=== PATIENT | male | born 1965 | race Hispanic/Latino ===

== ENCOUNTER → 2023-06-12 | Outpatient (CLI) | payer MEDICARE | END | disposition home or self-care (01) | LOC: SHCH 09:34 | PROVIDERS: ATTEND Internal Medicine Cardiovascular Disease | DX: I70.203 Unspecified atherosclerosis of native arteries of extremities, bilateral legs (principal); I65.23 Occlusion and stenosis of bilateral carotid arteries; I67.9 Cerebrovascular disease, unspecified; R09.89 Other specified symptoms and signs involving the circulatory and respiratory systems | CPT/HCPCS: 93880; 93925; 93970 ==

== ENCOUNTER → 2023-06-17 | Outpatient (CLI) | payer MEDICARE ==
[~2023-06-17] MED LIST: REGADENOSON 0.4 MG/5 ML PF SYG IVP ONE
== END | disposition home or self-care (01) ==
LOC: SHCH 08:21
PROVIDERS: ATTEND Internal Medicine Cardiovascular Disease
DX: I25.119 Atherosclerotic heart disease of native coronary artery with unspecified angina pectoris (principal)
CPT/HCPCS: 78452; 96374; 93017; J2785; A9500 ×2

== ENCOUNTER → 2023-07-23 | Outpatient (CLI) | payer MEDICARE ==
[2023-07-23 12:34] LABS: CREATININE 1.2 mg/dL (0.5-1.5)
== END | disposition home or self-care (01) ==
LOC: LAB 08:22
PROVIDERS: ATTEND Internal Medicine Cardiovascular Disease
DX: I25.119 Atherosclerotic heart disease of native coronary artery with unspecified angina pectoris (principal); I10 Essential (primary) hypertension
CPT/HCPCS: 36415; 82565; 84520

== ENCOUNTER 2023-08-12 08:37 | Day surgery (SDC) | payer MEDICARE ==
[2023-08-09 09:08] LABS: BASOPHILS # (AUTO) 0.05 K/uL (0.00-0.20); BASOPHILS % (AUTO) 0.5 % (0.0-5.0); EOSINOPHILS # (AUTO) 0.23 K/uL (0.00-0.70); EOSINOPHILS % (AUTO) 2.2 % (0.0-8.0); HEMATOCRIT 50.5 % (42-54); IMMATURE GRANULOCYTE ABSOLUTE 0.04 K/uL (0-1); LYMPHOCYTES # (AUTO) 2.4 K/uL (1.0-4.8); LYMPHOCYTES % (AUTO) 22.9 % (21.0-51.0); MEAN CORPUSCULAR HEMOGLOBIN 28.9 pg (27.0-33.0); MEAN CORPUSCULAR HGB CONC 31.7 g/dL (32.0-36.0); MEAN CORPUSCULAR VOLUME 91.3 fL (79-99); MONOCYTES # (AUTO) 0.9 K/uL (0.1-1.0); MONOCYTES % (AUTO) 8.6 % (3.0-13.0); NEUTROPHILS % (AUTO) 65.4 % (40.0-77.0); PLATELET COUNT (AUTO) 179 K/uL (130-400); RED BLOOD CELL COUNT(AUTO) 5.53 MIL/uL (4.50-6.20); RED CELL DISTRIBUTION WIDTH 15.3 % (11.0-15.5); WHITE BLOOD COUNT (AUTO) 10.7 K/uL (4.8-10.8)
[2023-08-09 09:19] LABS: POTASSIUM 4.5 mmol/L (3.5-5.1)
[2023-08-09 09:22] LABS: INR < 0.93 (0.85-1.15); PROTHROMBIN TIME 10.7 SEC (9.6-11.6)
[2023-08-09 09:23] LABS: PARTIAL THROMBOPLASTIN TIME 31.9 SEC (26.3-35.5)
[2023-08-09 09:35] LABS: B-TYPE NATRIURETIC PEPTIDE < 5 pg/mL (0-100)
[2023-08-09 09:43] VITALS: BP 165/90; PULSE 90; RESP 18
[2023-08-09 10:17] LABS: APPEARANCE,URINE CLEAR (CLEAR); BILIRUBIN,URINE NEGATIVE (NEGATIVE); COLOR,URINE LIGHT-YELLOW (YELLOW); GLUCOSE, URINE (UA) NEGATIVE (NEGATIVE); KETONES,URINE NEGATIVE (NEGATIVE); LEUKOCYTE ESTERASE ,URINE NEGATIVE Leu/uL (NEGATIVE); NITRATE,URINE NEGATIVE (NEGATIVE); OCCULT BLOOD,URINE NEGATIVE (NEGATIVE); PROTEIN,URINE 70 mg/dL (NEGATIVE); UROBILINOGEN,URINE 0.2 mg/dL (0.2-1.0)
[2023-08-09 10:40] LABS: ADD UA MICROSCOPIC YES
[2023-08-09 10:51] LABS: MUCUS,URINE RARE LPF (None Seen); RBC,URINE 0-1 /HPF (0-1); SQUAMOUS EPITHELIAL CELL,UR RARE /HPF (0-2); WBC,URINE 0-1 /HPF (0-1)
[~2023-08-12] VITALS: Ht 172.7 cm; Wt 95.9 kg
[~2023-08-12 08:37] MED LIST changes: +ALPR2TAB7 PO; +ATOR40TA71 PO; +DILT240C81 PO; +ERGO500093 PO; +GABA-529 PO; +HYDR-4068 PO; +ISOS30TA11 PO; +LEVA15HF3 IH; +LOSA100T59 PO; +METF-444 PO; +METO100T14 PO; +MONT-39 PO; +PRED10TA3 PO; +PROM473S7 PO; +RANO500T2 PO; -REGADENOSON 0.4 MG/5 ML PF SYG IVP ONE; +SERT-440 PO; +TAMS-1 PO; +THEO400T3 PO
[2023-08-12 09:00] VITALS: BP 162/71; PULSE 116; RESP 20
[2023-08-12] MEDS ORDERED: 0.9%NACL 1000ML 1,000 ML IV ONE ×2 (09:05→09:44)
[2023-08-12] MEDS ORDERED: NICARDIPINE 25MG INJ IV ONE (10:09)
[2023-08-12] MEDS ORDERED: IOHEXOL-350 50ML VIAL IV ONE (10:09)
[2023-08-12] MEDS ORDERED: IOHEXOL 350 MG/ML 100ML INFUS..BTL IV ONE (10:09)
[2023-08-12] MEDS ORDERED: LIDOCAINE HCL 400MG/20ML VIAL ONE (10:09)
[2023-08-12] MEDS ORDERED: SODIUM BICARB 50MEQ 50ML VIAL 0 ML ONE (10:10)
== END 2023-08-12 10:30 | disposition home or self-care (01) ==
LOC: DAH 08:37
PROVIDERS: ATTEND Internal Medicine Cardiovascular Disease
DX: I25.10 Atherosclerotic heart disease of native coronary artery without angina pectoris (principal); G47.33 Obstructive sleep apnea (adult) (pediatric); F41.0 Panic disorder [episodic paroxysmal anxiety]; F43.10 Post-traumatic stress disorder, unspecified; Z53.8 Procedure and treatment not carried out for other reasons; Z79.01 Long term (current) use of anticoagulants
CPT/HCPCS: 71045; 80048; 83880; 85025; 85610; 85730; 81001; 36415; 93005; 82948; J7030 ×2; A4215; A4222; A4221; A4663; A4216; A4606; A4223 ×3; J1644; J3490; Q9967

== ENCOUNTER 2023-09-20 05:39 | Observation (INO) | payer MEDICARE ==
[2023-09-17 10:48] LABS: BASOPHILS # (AUTO) 0.05 K/uL (0.00-0.20); BASOPHILS % (AUTO) 0.4 % (0.0-5.0); EOSINOPHILS % (AUTO) 1.7 % (0.0-8.0); HEMATOCRIT 47.6 % (42-54); IMMATURE GRANULOCYTE ABSOLUTE 0.07 K/uL (0-1); LYMPHOCYTES # (AUTO) 2.7 K/uL (1.0-4.8); LYMPHOCYTES % (AUTO) 22.8 % (21.0-51.0); MEAN CORPUSCULAR HEMOGLOBIN 29.1 pg (27.0-33.0); MEAN CORPUSCULAR HGB CONC 32.1 g/dL (32.0-36.0); MEAN CORPUSCULAR VOLUME 90.7 fL (79-99); MONOCYTES # (AUTO) 1.1 K/uL (0.1-1.0); MONOCYTES % (AUTO) 9.3 % (3.0-13.0); NEUTROPHILS # (AUTO) 7.6 K/uL (1.8-7.7); NEUTROPHILS % (AUTO) 65.2 % (40.0-77.0); PLATELET COUNT (AUTO) 185 K/uL (130-400); RED BLOOD CELL COUNT(AUTO) 5.25 MIL/uL (4.50-6.20); RED CELL DISTRIBUTION WIDTH 14.6 % (11.0-15.5); WHITE BLOOD COUNT (AUTO) 11.7 K/uL (4.8-10.8)
[2023-09-17 10:50] LABS: APPEARANCE,URINE CLEAR (CLEAR); BILIRUBIN,URINE NEGATIVE (NEGATIVE); COLOR,URINE LIGHT-YELLOW (YELLOW); GLUCOSE, URINE (UA) NEGATIVE (NEGATIVE); KETONES,URINE NEGATIVE (NEGATIVE); LEUKOCYTE ESTERASE ,URINE NEGATIVE Leu/uL (NEGATIVE); NITRATE,URINE NEGATIVE (NEGATIVE); OCCULT BLOOD,URINE NEGATIVE (NEGATIVE); PH,URINE 6.5 (5.0-8.0); PROTEIN,URINE 20 mg/dL (NEGATIVE); UROBILINOGEN,URINE 0.2 mg/dL (0.2-1.0)
[2023-09-17 10:54] LABS: ADD UA MICROSCOPIC YES
[2023-09-17 11:00] LABS: INR 0.94 (0.85-1.15); PROTHROMBIN TIME 10.9 SEC (9.6-11.6)
[2023-09-17 11:01] LABS: PARTIAL THROMBOPLASTIN TIME 31.7 SEC (26.3-35.5)
[2023-09-17 11:01] LABS: MUCUS,URINE RARE LPF (None Seen); RBC,URINE 0-1 /HPF (0-1); WBC,URINE 0-1 /HPF (0-1)
[2023-09-17 11:13] LABS: B-TYPE NATRIURETIC PEPTIDE 6 pg/mL (0-100)
[2023-09-17 11:15] LABS: POTASSIUM 3.9 mmol/L (3.5-5.1)
[2023-09-17 11:19] VITALS: BP 190/80; PULSE 105; RESP 21
[~2023-09-20] VITALS: Ht 170.2 cm; Wt 94.1 kg
[2023-09-20] VITALS (34 sets, daily range): BP systolic 125–198; BP diastolic 70–110; PULSE 70–102; RESP 14–24; O2SAT 95–98
[~2023-09-20 05:39] MED LIST changes: -ALPR2TAB7 PO; -ERGO500093 PO; -HYDR-4068 PO; -LEVA15HF3 IH; +LEVAHFA IH; +albuterol IH
[2023-09-20] MEDS ORDERED: 0.9%NACL 1000ML 1,000 ML IV ONE (06:58)
[2023-09-20] MEDS ORDERED: SODIUM BICARB 50MEQ 50ML VIAL 50 ML ONE (07:08)
[2023-09-20] MEDS ORDERED: LIDOCAINE HCL 400MG/20ML VIAL ONE (07:08)
[2023-09-20] MEDS ORDERED: HEPARIN 10,000 UNIT/10ML (1,000 UNIT/ML) VIAL ONE (07:09)
[2023-09-20] MEDS ORDERED: IOHEXOL 350 MG/ML 100ML INFUS..BTL IV ONE ×2 (07:09→12:12)
[2023-09-20] MEDS ORDERED: NITROGLYCERIN 50MG VIAL ONE (07:09)
[2023-09-20] MEDS ORDERED: FENTANYL CITRATE PF 50 MCG/1 ML 2ML VIAL ONE (07:27)
[2023-09-20] MEDS ORDERED: ROCURONIUM 10MG/1ML SYR 10 MG/ML ML ONE (07:27)
[2023-09-20] MEDS ORDERED: SUCCINYLCHOLINE 200MG/10ML SYR ONE (07:27)
[2023-09-20] MEDS ORDERED: PROPOFOL 10 MG/ML 20ML VIAL IV ONE ×2 (07:27→08:33)
[2023-09-20] MEDS ORDERED: PHENYLEPHRINE HCL 10 MG/ML 1ML VIAL IV ONE (07:27)
[2023-09-20] MEDS ORDERED: LIDOCAINE PF 100MG/5ML (2%) SYRINGE 5ML ONE (07:27)
[2023-09-20] MEDS ORDERED: NICARDIPINE 25MG INJ IV ONE (07:28)
[2023-09-20] MEDS ORDERED: SUGAMMADEX SODIUM 200 MG/2 ML VIAL IV ONE (07:31)
[2023-09-20] MEDS ORDERED: ACETAMINOPHEN WITH CODEINE 1 TAB TAB PO PRN ×2 (09:30)
[2023-09-20] MEDS ORDERED: ONDANSETRON 4MG INJ IVP PRN ×2 (09:30→12:00)
[2023-09-20] MEDS ORDERED: CLOPIDOGREL 300MG TAB PO SCH ×2 (09:30→10:30)
[2023-09-20] MEDS ORDERED: 0.9%NACL 1000ML 1,000 ML IV SCH ×2 (09:30→15:30)
[2023-09-20] MEDS ORDERED: MORPHINE 4 MG SYG ONE ×2 (09:40→09:47)
[2023-09-20] MEDS ORDERED: ONDANSETRON 4MG INJ ONE (09:44)
[2023-09-20] MEDS ORDERED: MIDAZOLAM HCL 1 MG/ML 2ML VIAL ONE (09:49)
[2023-09-20] MEDS ORDERED: ACETAMINOPHEN 325 MG TAB ONE (10:09)
[2023-09-20] MEDS ORDERED: ENOXAPARIN SODIUM 100 MG/1 ML SQ ONE ×2 (10:30→10:45)
[2023-09-20] MEDS ORDERED: LABETALOL 20MG VIAL IV ONE (10:57)
[2023-09-20] MEDS ORDERED: MORPHINE 2 MG SYG IVP PRN (11:00)
[2023-09-20] MEDS ORDERED: IPRATROPIUM/ALBUTEROL SULFATE 3 ML SOLUTION IH PRN (11:00)
[2023-09-20] MEDS ORDERED: NITROGLYCERIN PATCH 0.2 MG/HR TD SCH (11:00)
[2023-09-20] MEDS ORDERED: LABETALOL 20MG VIAL IV PRN (11:00)
[2023-09-20] MEDS ORDERED: IOHEXOL-350 75 ML VIAL IV ONE (12:13)
[2023-09-20] MEDS ORDERED: PROMETHAZINE/CODEINE 6.25-10MG/5ML CUP PO PRN (13:00)
[2023-09-20] MEDS: IPRATROPIUM/ALBUTEROL SULFATE 3 ML SOLUTION IH SCH ×3 (14:43→22:55)
[2023-09-20] MEDS: THEOPHYLLINE ANHYDROUS 100 MG CAP.ER.24H PO SCH (16:01)
[2023-09-20] MEDS: PANTOPRAZOLE 40 MG TAB DR PO SCH (16:02)
[2023-09-20] MEDS: MORPHINE 2 MG SYG IVP PRN ×2 (16:03→21:29)
[2023-09-20] MEDS: BUDESONIDE 0.5 MG/2 ML INH IH SCH (18:30)
[2023-09-20] MEDS: ISOSORBIDE DINITRATE 20MG TAB PO SCH (20:12)
[2023-09-20] MEDS: RANOLAZINE 500 MG TAB.SR.12H PO SCH (20:12)
[2023-09-20] MEDS: METOPROLOL TARTRATE 50 MG TAB PO SCH (20:12)
[2023-09-20] MEDS ORDERED: DILTIAZEM HCL 240 MG PO SCH (21:00)
[2023-09-20] MEDS ORDERED: MONTELUKAST SODIUM 10 MG TAB PO SCH (21:00)
[2023-09-20] MEDS ORDERED: ATORVASTATIN 40 MG TABLET PO SCH (21:00)
[2023-09-20] MEDS ORDERED: NON-FORMULARY MEDICATION 1 EACH (Metoprolol Tartrate 100 MG) PO SCH (21:00)
[2023-09-20] MEDS ORDERED: NON-FORMULARY MEDICATION 1 EACH (Isosorbide Dinitrate 30 MG) PO SCH (21:00)
[2023-09-20] MEDS ORDERED: GABAPENTIN 100 MG CAPSULE PO SCH (21:00)
[2023-09-20] MEDS ORDERED: DILTIAZEM 120MG SR CAP PO SCH (21:00)
[2023-09-20] MEDS: INSULIN HUMULIN R 100 UNIT/ML 3ML SQ SCH (21:30)
[2023-09-20] MEDS ORDERED: POTASSIUM CHLORIDE 20MEQ/100ML 100 ML IV PRN (23:00)
[2023-09-20] MEDS ORDERED: MAGNESIUM 2GM PREMIX 50ML 50 ML IV SCH (23:00)
[2023-09-20] MEDS ORDERED: POTASSIUM CHLORIDE 10% ELIXIR 20 MEQ/15 ML UDCUP PO PRN (23:00)
[2023-09-20] MEDS ORDERED: KCL 20 MEQ ERTAB PO PRN (23:00)
[2023-09-21] VITALS (7 sets, daily range): BP systolic 97–133; BP diastolic 51–70; PULSE 54–89; RESP 18–22; O2SAT 95
[2023-09-21] MEDS: IPRATROPIUM/ALBUTEROL SULFATE 3 ML SOLUTION IH SCH ×3 (01:00→10:28)
[2023-09-21] MEDS: MORPHINE 2 MG SYG IVP PRN (03:35)
[2023-09-21 04:29] LABS: BASOPHILS # (AUTO) 0.07 K/uL (0.00-0.20); BASOPHILS % (AUTO) 0.5 % (0.0-5.0); EOSINOPHILS % (AUTO) 1.3 % (0.0-8.0); IMMATURE GRANULOCYTE ABSOLUTE 0.07 K/uL (0-1); LYMPHOCYTES # (AUTO) 3.2 K/uL (1.0-4.8); LYMPHOCYTES % (AUTO) 21.3 % (21.0-51.0); MEAN CORPUSCULAR HEMOGLOBIN 29.5 pg (27.0-33.0); MEAN CORPUSCULAR HGB CONC 32.1 g/dL (32.0-36.0); MEAN CORPUSCULAR VOLUME 91.7 fL (79-99); MONOCYTES # (AUTO) 1.7 K/uL (0.1-1.0); MONOCYTES % (AUTO) 11.1 % (3.0-13.0); NEUTROPHILS # (AUTO) 9.9 K/uL (1.8-7.7); NEUTROPHILS % (AUTO) 65.3 % (40.0-77.0); PLATELET COUNT (AUTO) 178 K/uL (130-400); RED BLOOD CELL COUNT(AUTO) 4.58 MIL/uL (4.50-6.20); RED CELL DISTRIBUTION WIDTH 15.1 % (11.0-15.5); WHITE BLOOD COUNT (AUTO) 15.2 K/uL (4.8-10.8)
[2023-09-21 04:40] LABS: CREATININE 1.2 mg/dL (0.5-1.5); MAGNESIUM 1.8 mg/dL (1.80-2.40); POTASSIUM 4.5 mmol/L (3.5-5.1)
[2023-09-21] MEDS: INSULIN HUMULIN R 100 UNIT/ML 3ML SQ SCH ×2 (05:54→11:38)
[2023-09-21] MEDS: BUDESONIDE 0.5 MG/2 ML INH IH SCH (07:12)
[2023-09-21] MEDS ORDERED: ASPIRIN 325MG TAB PO SCH (09:00)
[2023-09-21] MEDS ORDERED: NON-FORMULARY MEDICATION 1 EACH (Sertraline HCl 100 MG) PO SCH (09:00)
[2023-09-21] MEDS ORDERED: THEOPHYLLINE ANHYDROUS 400 MG PO SCH (09:00)
[2023-09-21] MEDS ORDERED: SERTRALINE HCL 50 MG TABLET PO SCH (09:00)
[2023-09-21] MEDS ORDERED: TAMSULOSIN HCL 0.4 MG CAP.ER.24H PO SCH (09:00)
[2023-09-21] MEDS ORDERED: PREDNISONE 10 MG TABLET PO SCH (09:00)
[2023-09-21] MEDS ORDERED: LOSARTAN 100 MG TABLET PO SCH (09:00)
[2023-09-21] MEDS ORDERED: CLOPIDOGREL 75MG TAB PO SCH (09:00)
[2023-09-21] MEDS: METOPROLOL TARTRATE 50 MG TAB PO SCH (09:36)
[2023-09-21] MEDS: RANOLAZINE 500 MG TAB.SR.12H PO SCH (09:36)
[2023-09-21] MEDS: ISOSORBIDE DINITRATE 20MG TAB PO SCH (09:38)
[2023-09-21] MEDS: THEOPHYLLINE ANHYDROUS 100 MG CAP.ER.24H PO SCH (11:33)
[2023-09-21] MEDS: PANTOPRAZOLE 40 MG TAB DR PO SCH (13:29)
[2023-09-21] MEDS ORDERED: IPRATROPIUM/ALBUTEROL SULFATE 3 ML SOLUTION IH SCH (14:00)
[2023-09-21] MEDS ORDERED: AEC81 PO (14:10)
[2023-09-21] MEDS ORDERED: CLOP-31 PO (14:10)
== END 2023-09-21 14:42 | disposition home or self-care (01) ==
LOC: DAH 05:39 → DAHIP 05:40 → 2AH 11:20
PROVIDERS: ADMIT Internal Medicine; ATTEND Internal Medicine
DX: I25.119 Atherosclerotic heart disease of native coronary artery with unspecified angina pectoris (principal); I16.0 Hypertensive urgency; I10 Essential (primary) hypertension; I21.4 Non-ST elevation (NSTEMI) myocardial infarction; I69.354 Hemiplegia and hemiparesis following cerebral infarction affecting left non-dominant side; E11.51 Type 2 diabetes mellitus with diabetic peripheral angiopathy without gangrene; E66.9 Obesity, unspecified; E78.5 Hyperlipidemia, unspecified; J44.9 Chronic obstructive pulmonary disease, unspecified; G47.33 Obstructive sleep apnea (adult) (pediatric); J96.11 Chronic respiratory failure with hypoxia; F43.10 Post-traumatic stress disorder, unspecified; F17.210 Nicotine dependence, cigarettes, uncomplicated; Z79.51 Long term (current) use of inhaled steroids; Z79.899 Other long term (current) drug therapy; Z68.33 Body mass index [BMI] 33.0-33.9, adult; Z98.890 Other specified postprocedural states; Z79.82 Long term (current) use of aspirin; Z79.84 Long term (current) use of oral hypoglycemic drugs; Z79.4 Long term (current) use of insulin; Z90.49 Acquired absence of other specified parts of digestive tract
CPT/HCPCS: 80048 ×2; 83880 ×2; 85025 ×2; 85610; 85730; 81001; 36415 ×3; 71045; 93005 ×3; 93458; 93571; 96376 ×2; 96372; 96375; 83036; 85347 ×2; 82948 ×6; 71270; 93306; 94640 ×5; 94664; 96365; 96366; 83735; C1769 ×2; C1887 ×3; C1874 ×3; A4649; C1894; Q9965 ×2; G0378 ×24; J3010; J3490 ×5; J0330; J2270 ×5; J7030; J2001; J1644 ×2; J2250; J2704 ×2; J2405; J1650; J2371; Q9967 ×2; J1815 ×2; A4215; A4223 ×3; A4222; A4221; A4663; A4216; A4606; C9600 ×2; J3475; Q0169; J7512

== ENCOUNTER 2024-07-02 11:04 | Inpatient (IN) | payer MEDICARE ==
[2024-07-02] VITALS (7 sets, daily range): BP systolic 150–161; BP diastolic 81–98; PULSE 117–133; RESP 20–24; TEMP 97.8–98.4; O2SAT 94
[~2024-07-02] VITALS: Ht 172.7 cm; Wt 94.3 kg
[~2024-07-02 11:04] MED LIST changes: +AEC81 PO; +CLOP-31 PO; -PROM473S7 PO; +[UNRECOGNIZED DRUG - CODE] PO
[2024-07-02 11:32] LABS: BASOPHILS # (AUTO) 0.07 K/uL (0.00-0.20); BASOPHILS % (AUTO) 0.6 % (0.0-5.0); EOSINOPHILS # (AUTO) 0.29 K/uL (0.00-0.70); EOSINOPHILS % (AUTO) 2.5 % (0.0-8.0); HEMATOCRIT 50.6 % (42-54); IMMATURE GRANULOCYTE ABSOLUTE 0.06 K/uL (0-1); LYMPHOCYTES # (AUTO) 2.4 K/uL (1.0-4.8); LYMPHOCYTES % (AUTO) 20.2 % (21.0-51.0); MEAN CORPUSCULAR HEMOGLOBIN 29.6 pg (27.0-33.0); MEAN CORPUSCULAR VOLUME 92.5 fL (79-99); MONOCYTES % (AUTO) 8.2 % (3.0-13.0); NEUTROPHILS # (AUTO) 7.9 K/uL (1.8-7.7); PLATELET COUNT (AUTO) 205 K/uL (130-400); RED BLOOD CELL COUNT(AUTO) 5.47 MIL/uL (4.50-6.20); RED CELL DISTRIBUTION WIDTH 14.4 % (11.0-15.5); WHITE BLOOD COUNT (AUTO) 11.6 K/uL (4.8-10.8)
[2024-07-02 11:43] LABS: POTASSIUM 3.8 mmol/L (3.5-5.1)
[2024-07-02] MEDS: IpraTROPium/alBUTERol SULFATE 3 ML SOLUTION IH ONE (11:44)
[2024-07-02 11:54] LABS: ABG HCO3 27.1 mmol/L (21.0-28.0); ABG PCO2 49 mmHg (35-48); ABG PH 7.363 (7.350-7.450); PO2, ARTERIAL BG 65.3 mmHg (83.0-108.0); VENT MODE, BG RA (ROOM AIR)
[2024-07-02] MEDS: Solu-medROL 125MG VIAL IVP ONE (12:02)
[2024-07-02] MEDS: MAGNESIUM 2GM PREMIX 50ML 50 ML IV SCH (12:02)
[2024-07-02 12:04] LABS: B-TYPE NATRIURETIC PEPTIDE < 5 pg/mL (0-100)
[2024-07-02 12:37] LABS: SARS-CoV-2, RNA, NAAT NEGATIVE SARS CoV-2 (NEGATIVE)
[2024-07-02 12:44] LABS: INFLUENZA TYPE A Negative For Type A (NEGATIVE); INFLUENZA TYPE B Negative For Type B (NEGATIVE)
[2024-07-02 13:15] LABS: ADD UA MICROSCOPIC YES; APPEARANCE,URINE CLOUDY (CLEAR); BILIRUBIN,URINE NEGATIVE (NEGATIVE); COLOR,URINE YELLOW (YELLOW); GLUCOSE, URINE (UA) >=1000 mg/dL (NEGATIVE); KETONES,URINE NEGATIVE (NEGATIVE); LEUKOCYTE ESTERASE ,URINE NEGATIVE Leu/uL (NEGATIVE); NITRATE,URINE NEGATIVE (NEGATIVE); OCCULT BLOOD,URINE NEGATIVE (NEGATIVE); PH,URINE 5.5 (5.0-8.0); PROTEIN,URINE TRACE mg/dL (NEGATIVE); UROBILINOGEN,URINE 0.2 mg/dL (0.2-1.0)
[2024-07-02 13:17] LABS: BACTERIA,URINE FEW /HPF (None Seen); MUCUS,URINE RARE LPF (None Seen); SQUAMOUS EPITHELIAL CELL,UR MANY /HPF (0-2); YEAST,URINE BUDDING FEW /HPF (None Seen)
[2024-07-02] MEDS ORDERED: DiphenhydrAMINE HCL 25 MG CAPSULE PO PRN (15:00)
[2024-07-02] MEDS ORDERED: ONDANSETRON 4MG INJ IV PRN (15:00)
[2024-07-02] MEDS ORDERED: DEXTROSE 50%-WATER 50 ML DISP.SYRIN IV PRN (15:00)
[2024-07-02] MEDS ORDERED: guaiFENesin-DM 200/20MG 10ML PO PRN (15:00)
[2024-07-02] MEDS ORDERED: NITROGLYCERIN 0.4 MG SL TAB SL PRN (15:00)
[2024-07-02] MEDS ORDERED: cefTRIAXone 1G VIAL 1 GM in 0.9%NACL 50ML 50 ML IV SCH (15:00)
[2024-07-02] MEDS ORDERED: GLUCAGON 1MG KIT 1 MG ML IM PRN (15:00)
[2024-07-02] MEDS ORDERED: MAG/ALUM/SIMETH 30 ML UDCUP PO PRN (15:00)
[2024-07-02 15:34] LABS: HEMOGLOBIN A1C 7.8 % (4.0-6.0)
[2024-07-02] MEDS: AZITHROMYCIN 500MG+NS 250ML 250 ML IV SCH (16:19)
[2024-07-02] MEDS: INSULIN humuLIN R 100 UNIT/ML 3ML SQ SCH (16:30)
[2024-07-02] MEDS: cefTRIAXone 1G VIAL IVPB SCH (17:53)
[2024-07-02] MEDS: acetaMINOPHEN WITH coDEINE 1 TAB TAB PO PRN (17:53)
[2024-07-02] MEDS ORDERED: IOHEXOL 350 MG/ML 100ML INFUS..BTL IV ONE (17:57)
[2024-07-02] MEDS: IpraTROPium/alBUTERol SULFATE 3 ML SOLUTION IH SCH (18:28)
[2024-07-02] MEDS: SODIUM CHLORIDE 7% INHALATION 4 ML VIAL.NEB IH ONE (18:28)
[2024-07-02 20:03] LABS: INR 0.95 (0.85-1.15); PROTHROMBIN TIME 10.3 SEC (9.6-11.6)
[2024-07-02 20:04] LABS: PARTIAL THROMBOPLASTIN TIME 30.8 SEC (26.3-35.5)
[2024-07-02] MEDS ORDERED: LOSA100T59 PO (20:26)
[2024-07-02] MEDS ORDERED: METO100T14 PO (20:26)
[2024-07-02] MEDS ORDERED: TAMS-1 PO (20:26)
[2024-07-02] MEDS ORDERED: POLY17PO52 PO (20:26)
[2024-07-02] MEDS ORDERED: HYDR-4068 PO (20:26)
[2024-07-02] MEDS ORDERED: GABA-529 PO (20:26)
[2024-07-02] MEDS ORDERED: MOME17SP12 NS (20:26)
[2024-07-02] MEDS ORDERED: METF-444 PO (20:26)
[2024-07-02] MEDS ORDERED: ERGO500093 PO (20:26)
[2024-07-02] MEDS ORDERED: BUDE10.2 IH (20:26)
[2024-07-02] MEDS ORDERED: RANO500T6 PO (20:26)
[2024-07-02] MEDS ORDERED: ALPR2TAB7 PO (20:26)
[2024-07-02] MEDS ORDERED: SERT100T PO (20:26)
[2024-07-02] MEDS ORDERED: LEVA15HF3 IH (20:26)
[2024-07-02] MEDS ORDERED: DILT240C97 PO (20:26)
[2024-07-02] MEDS ORDERED: MONT-39 PO (20:26)
[2024-07-02] MEDS ORDERED: IPRA3AMP24 IH (20:26)
[2024-07-02] MEDS ORDERED: PRED10TA3 PO (20:26)
[2024-07-02] MEDS ORDERED: LEVAHFA IH (20:26)
[2024-07-02] MEDS ORDERED: ATOR40TA71 PO (20:26)
[2024-07-02] MEDS ORDERED: SEMA0.258 SQ (20:26)
[2024-07-02] MEDS ORDERED: ISOS30TA11 PO (20:26)
[2024-07-02] MEDS: FAMOTIDINE 20MG VIAL IV SCH (21:00)
[2024-07-02] MEDS: guaiFENesin-DM 200/20MG 10ML PO PRN (21:00)
[2024-07-02] MEDS: Solu-medROL 125MG VIAL IV SCH (21:00)
[2024-07-02] MEDS: ZOLPidem TARTrate 5 MG TAB PO PRN (21:01)
[2024-07-02] MEDS: SODIUM CHLORIDE 3% FOR INHALATION 4 ML/AMP VIAL.NEB IH ONE (22:31)
[2024-07-03] VITALS (14 sets, daily range): BP systolic 135–159; BP diastolic 56–89; PULSE 91–128; RESP 18–22; TEMP 97.7–98.6; O2SAT 93–99
[2024-07-03] MEDS: CEFTRIAXONE 2GM VIAL IVPB SCH (04:03)
[2024-07-03] MEDS: BENZONATATE 100 MG CAPSULE PO SCH (04:08)
[2024-07-03] MEDS: SODIUM CHLORIDE 3% FOR INHALATION 4 ML/AMP VIAL.NEB IH ONE (06:26)
[2024-07-03] MEDS: ENOXAPARIN SODIUM 40 MG/0.4 ML SYRINGE SQ SCH (09:51)
[2024-07-03] MEDS: LAbetaLOL 20MG SYG IV ONE (09:53)
[2024-07-03] MEDS: 0.9%NACL 1000ML 1,000 ML IV SCH (10:04)
[2024-07-03] MEDS: guaiFENesin-coDEINE 5 ML SYRUP PO PRN (15:30)
[2024-07-03] MEDS: LACTULOSE 20 GM/30 ML UDCUP PO PRN (15:38)
[2024-07-03] MEDS: INSULIN LISpro 100 UNIT/ML 3ML SQ SCH (17:19)
[2024-07-03] MEDS ORDERED: NON-FORMULARY MEDICATION 1 EACH (Isosorbide Dinitrate 30 MG) PO SCH (21:00)
[2024-07-03] MEDS: ALPRAZolam 1 MG TAB PO SCH (21:00)
[2024-07-03] MEDS ORDERED: NON-FORMULARY MEDICATION 1 EACH (Alprazolam 2 MG) PO SCH (21:00)
[2024-07-03] MEDS ORDERED: INSULIN GLARgine 100 UNITS/ML 10 ML VIAL SQ SCH (21:00)
[2024-07-03] MEDS ORDERED: NON-FORMULARY MEDICATION 1 EACH (Metoprolol Tartrate 100 MG) PO SCH (21:00)
[2024-07-03] MEDS: isoSORbide DInitRATE 10MG TAB PO SCH (21:26)
[2024-07-03] MEDS: metoPROLOL tartRATE 50 MG TAB PO SCH (21:27)
[2024-07-03] MEDS: GABApentin 100 MG CAPSULE PO SCH (21:27)
[2024-07-03] MEDS: INSULIN GLARgine 100 UNITS/ML 10 ML VIAL SQ SCH (21:30)
[2024-07-04] VITALS (18 sets, daily range): BP systolic 129–152; BP diastolic 70–78; PULSE 84–112; RESP 16–22; TEMP 97.6–98.7; O2SAT 95–98
[2024-07-04 04:27] LABS: BASOPHILS # (AUTO) 0.03 K/uL (0.00-0.20); BASOPHILS % (AUTO) 0.1 % (0.0-5.0); HEMATOCRIT 42.4 % (42-54); IMMATURE GRANULOCYTE ABSOLUTE 0.27 K/uL (0-1); LYMPHOCYTES # (AUTO) 1.5 K/uL (1.0-4.8); LYMPHOCYTES % (AUTO) 6.3 % (21.0-51.0); MEAN CORPUSCULAR HEMOGLOBIN 29.2 pg (27.0-33.0); MEAN CORPUSCULAR HGB CONC 31.6 g/dL (32.0-36.0); MEAN CORPUSCULAR VOLUME 92.4 fL (79-99); MONOCYTES # (AUTO) 1.5 K/uL (0.1-1.0); MONOCYTES % (AUTO) 6.3 % (3.0-13.0); NEUTROPHILS # (AUTO) 20.3 K/uL (1.8-7.7); NEUTROPHILS % (AUTO) 86.2 % (40.0-77.0); PLATELET COUNT (AUTO) 229 K/uL (130-400); RED BLOOD CELL COUNT(AUTO) 4.59 MIL/uL (4.50-6.20); RED CELL DISTRIBUTION WIDTH 14.7 % (11.0-15.5); WHITE BLOOD COUNT (AUTO) 23.5 K/uL (4.8-10.8)
[2024-07-04 04:41] LABS: BILIRUBIN,TOTAL 0.1 mg/dL (0.2-1.0); POTASSIUM 4.5 mmol/L (3.5-5.1); TOTAL PROTEIN, SERUM 6.5 g/dL (6.0-8.3)
[2024-07-04] MEDS ORDERED: NON-FORMULARY MEDICATION 1 EACH (Sertraline HCl (Zoloft) 100 MG) PO SCH (09:00)
[2024-07-04] MEDS: LoSARTan 100 MG TABLET PO SCH (09:00)
[2024-07-04] MEDS ORDERED: DILTIAZEM HCL 240 MG PO SCH (09:00)
[2024-07-04] MEDS: atorVAStatin 40 MG TABLET PO SCH (11:39)
[2024-07-04] MEDS: SERTraline HCL 50 MG TABLET PO SCH (11:43)
[2024-07-04] MEDS: INSULIN humuLIN R 100 UNIT/ML 3ML SQ SCH (12:42)
[2024-07-05] VITALS (17 sets, daily range): BP systolic 122–188; BP diastolic 60–82; PULSE 71–98; RESP 16–20; TEMP 97.8–98.4; O2SAT 93–95
[2024-07-05 05:57] LABS: BASOPHILS # (AUTO) 0.04 K/uL (0.00-0.20); BASOPHILS % (AUTO) 0.2 % (0.0-5.0); HEMATOCRIT 42.4 % (42-54); IMMATURE GRANULOCYTE ABSOLUTE 0.22 K/uL (0-1); LYMPHOCYTES # (AUTO) 1.5 K/uL (1.0-4.8); LYMPHOCYTES % (AUTO) 7.6 % (21.0-51.0); MEAN CORPUSCULAR HEMOGLOBIN 29.9 pg (27.0-33.0); MEAN CORPUSCULAR HGB CONC 32.1 g/dL (32.0-36.0); MEAN CORPUSCULAR VOLUME 93.2 fL (79-99); MONOCYTES # (AUTO) 1.2 K/uL (0.1-1.0); MONOCYTES % (AUTO) 5.9 % (3.0-13.0); NEUTROPHILS # (AUTO) 17.3 K/uL (1.8-7.7); NEUTROPHILS % (AUTO) 85.2 % (40.0-77.0); PLATELET COUNT (AUTO) 219 K/uL (130-400); RED BLOOD CELL COUNT(AUTO) 4.55 MIL/uL (4.50-6.20); RED CELL DISTRIBUTION WIDTH 14.6 % (11.0-15.5); WHITE BLOOD COUNT (AUTO) 20.3 K/uL (4.8-10.8)
[2024-07-05 06:09] LABS: ALBUMIN 2.9 g/dL (3.5-5.0); BILIRUBIN,TOTAL 0.2 mg/dL (0.2-1.0); CREATININE 1.1 mg/dL (0.5-1.3); POTASSIUM 4.6 mmol/L (3.5-5.1); TOTAL PROTEIN, SERUM 6.2 g/dL (6.0-8.3)
[2024-07-05] MEDS: acetaMINOPHEN 325 MG TAB PO PRN (16:02)
[2024-07-05] MEDS: hydrALAZine 20MG/ML VIAL IV PRN (23:25)
[2024-07-06] VITALS (11 sets, daily range): BP systolic 146–180; BP diastolic 69–84; PULSE 71–101; RESP 16–20; TEMP 97.8–98.6; O2SAT 93–99
[2024-07-06 09:14] LABS: BASOPHILS # (AUTO) 0.07 K/uL (0.00-0.20); BASOPHILS % (AUTO) 0.4 % (0.0-5.0); EOSINOPHILS # (AUTO) 0.02 K/uL (0.00-0.70); EOSINOPHILS % (AUTO) 0.1 % (0.0-8.0); HEMATOCRIT 45.8 % (42-54); IMMATURE GRANULOCYTE ABSOLUTE 0.65 K/uL (0-1); LYMPHOCYTES # (AUTO) 1.5 K/uL (1.0-4.8); LYMPHOCYTES % (AUTO) 7.6 % (21.0-51.0); MEAN CORPUSCULAR HEMOGLOBIN 28.9 pg (27.0-33.0); MEAN CORPUSCULAR HGB CONC 32.3 g/dL (32.0-36.0); MEAN CORPUSCULAR VOLUME 89.5 fL (79-99); MONOCYTES % (AUTO) 5.2 % (3.0-13.0); NEUTROPHILS % (AUTO) 83.3 % (40.0-77.0); NUCLEATED RED BLOOD CELLS 0.1 % (0.0-0.19); PLATELET COUNT (AUTO) 239 K/uL (130-400); RED BLOOD CELL COUNT(AUTO) 5.12 MIL/uL (4.50-6.20); RED CELL DISTRIBUTION WIDTH 14.4 % (11.0-15.5); WHITE BLOOD COUNT (AUTO) 19.2 K/uL (4.8-10.8)
[2024-07-06 09:26] LABS: CREATININE 1.1 mg/dL (0.5-1.3); POTASSIUM 3.4 mmol/L (3.5-5.1)
[2024-07-06] MEDS ORDERED: Solu-medROL 40MG VIAL IVP SCH (11:00)
[2024-07-06] MEDS: KCL 20 MEQ ERTAB PO ONE (15:17)
[2024-07-06] MEDS: Solu-medROL 40MG VIAL IVP SCH (20:10)
[2024-07-06] MEDS: INSULIN humuLIN R 100 UNIT/ML 3ML SQ ONE (21:42)
[2024-07-07] VITALS (8 sets, daily range): BP systolic 152–170; BP diastolic 74–94; PULSE 68–86; RESP 18–20; TEMP 97.7–98; O2SAT 94–97
[2024-07-07 05:29] LABS: CREATININE 0.9 mg/dL (0.5-1.3); POTASSIUM 3.7 mmol/L (3.5-5.1)
[2024-07-07] MEDS ORDERED: CEFD300C3 PO (11:21)
[2024-07-07] MEDS ORDERED: PRED20TA3 PO (13:58)
== END 2024-07-07 14:20 | disposition home or self-care (01) | DRG 193 ==
LOC: EDH 11:04 → EDHIP 14:54 → 3AH 17:40
PROVIDERS: ADMIT Hospitalist; ATTEND Hospitalist
PROC: 5A09357 Assistance with Respiratory Ventilation, Less than 24 Consecutive Hours, Continuous Positive Airway Pressure (ICD-10-PCS; principal; 2024-07-03)
PROC: 5A09357 Assistance with Respiratory Ventilation, Less than 24 Consecutive Hours, Continuous Positive Airway Pressure (ICD-10-PCS; 2024-07-05)
PROC: 5A09357 Assistance with Respiratory Ventilation, Less than 24 Consecutive Hours, Continuous Positive Airway Pressure (ICD-10-PCS; 2024-07-06)
PROC: 5A09357 Assistance with Respiratory Ventilation, Less than 24 Consecutive Hours, Continuous Positive Airway Pressure (ICD-10-PCS; 2024-07-07)
DX: J18.9 Pneumonia, unspecified organism (principal); J96.21 Acute and chronic respiratory failure with hypoxia; J96.22 Acute and chronic respiratory failure with hypercapnia; J44.1 Chronic obstructive pulmonary disease with (acute) exacerbation; E66.2 Morbid (severe) obesity with alveolar hypoventilation; J44.0 Chronic obstructive pulmonary disease with (acute) lower respiratory infection; D72.829 Elevated white blood cell count, unspecified; Z20.822 Contact with and (suspected) exposure to COVID-19; I10 Essential (primary) hypertension; I25.10 Atherosclerotic heart disease of native coronary artery without angina pectoris; F17.210 Nicotine dependence, cigarettes, uncomplicated; E11.65 Type 2 diabetes mellitus with hyperglycemia; F39 Unspecified mood [affective] disorder; E78.00 Pure hypercholesterolemia, unspecified; Z91.199 Patient's noncompliance with other medical treatment and regimen due to unspecified reason; Z88.8 Allergy status to other drugs, medicaments and biological substances; Z82.49 Family history of ischemic heart disease and other diseases of the circulatory system; Z68.32 Body mass index [BMI] 32.0-32.9, adult; Z95.5 Presence of coronary angioplasty implant and graft; Z79.899 Other long term (current) drug therapy; Z79.4 Long term (current) use of insulin
CPT/HCPCS: 36415; 36600; 71045; 71270; 80048; 80053; 81001; 82550; 82803; 82948; 83036; 83880; 84484; 85025; 85378; 85610; 85730; 87040; 87071; 87205; 87635; 87804; 93005; 94640; 94664; 96365; 96375; G0378; J0360; J0456; J0696; J1650; J1815; J2919; J3475; J3490; Q9967